=== PATIENT | male | born 1990 | race Caucasian/White ===

== ENCOUNTER 2021-08-22 15:16 | Emergency (ER) | payer OTHER, SELFPAY ==
--- NOTE | ~2021-08-22 | CT_ITS ---
EXAMINATION: CT HEAD WITHOUT CONTRAST CLINICAL INFORMATION: Headache COMPARISON: Head CT 07/16/2015 TECHNIQUE: Imaging was performed from the skull base to vertex without intravenous administration of contrast. This CT examination was performed using dose optimization techniques as appropriate, variously including the following: *Automated exposure control *Adjustment of mA and/or kV according to patient size (this includes techniques or standardized protocols for targeted exams where dose is matched to indication/reason for exam; i.e. extremities or head) *Use of iterative reconstruction technique Total exam dose length product: 788 mGy-cm FINDINGS: No intra or extra-axial fluid collection, hemorrhage, or mass. No ventriculomegaly. No midline shift or herniation. Basal cisterns are patent. Wilhelm-white matter differentiation is maintained. No territorial encephalomalacia. No significant volume loss. There is no abnormal attenuation within the brain parenchyma. No calvarial fracture or soft tissue abnormality. The mastoid air cells and visualized portions of the paranasal sinuses are well aerated. CT/CT head/brain wo con IMPRESSION: 1. No acute intracranial pathology.
[2021-08-22 15:23] VITALS: BP 104/74; PULSE 94; RESP 20; TEMP 36.8; O2SAT 96; BMI 26.9
--- NOTE | 2021-08-22 20:31 | ED.NAVMDI ---
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 As per mother patient had a history of psych disorder. Patient stated that his been hearing voices, no depression, no SI, no HI, no substance abuse. Complaining of headache with nausea and vomiting and blurry vision, otherwise no diarrhea, no losing weight. No sick contact, no recent travel. Patient also been complaining of upper abdominal/epigastric pain that localized to the epigastric area with no radiation mostly with vomiting, pain is intermittent. Related Data Previous Rx's Medication Instructions Recorded omeprazole magnesium 20 mg 20 mg PO BID #20 tab 08/22/21 tablet,delayed release (Prilosec OTC) ondansetron 4 mg disintegrating 4 mg PO BEDTIME PRN 4 Days #7 tab 08/22/21 tablet Allergies Allergy/AdvReac Type Severity Reaction Status Date / Time Pork/Porcine Containing AdvReac Unknown CONGREGATIONAL Unverified 12/06/19 18:46 Products REASONS [PORK/PORCINE CONTAINING PRODUCTS] Review of Systems Review of Systems: All other systems are reviewed and are negative Constitutional: Reports as per HPI and Reports no additional constitutional complaints Eyes: Reports as per HPI and Reports no additional eye complaints Reports system reviewed and no additional complaints, except as documented Cardiovascular: Reports as per HPI and Reports no additional cardiovascular complaints Respiratory: Reports as per HPI and Reports no additional respiratory complaints Gastrointestinal: Reports as per HPI and Reports no additional gastrointestinal complaints Genitourinary: Reports no additional female genitourinary complaints Musculoskeletal: Reports no additional musculoskeletal complaints Skin/Breast: Reports system reviewed and no additional complaints, except as docu Psychiatric: Reports no additional psychiatric complaints Endocrine: Reports no additional endocrine complaints Hematologic/Lymphatic: Reports no additional hematologic/lymphatic complaints Allergic/Immunologic: Reports no additional allergic/immunologic complaints Reports system reviewed and no additional complaints, except as documented and Reports Abnormal speech present Physical Exam Vital Signs: Vital Signs: Last Vital Signs Temp 98.2 F 08/22/21 15:23 Pulse 94 08/22/21 15:23 Resp 20 08/22/21 15:23 BP 104/74 08/22/21 15:23 Pulse Ox 96 08/22/21 15:23 BMI result Body Mass Index 26.9 Vital signs have been reviewed as appeared to be correct. Blood pressure normal. Heart rate normal. Respiration rate normal. Temperature normal. Oxygen saturation normal. Appearance: Alert. Oriented X3. No acute distress. Head: Normal external exam. Normocephalic. Atraumatic. No Coyle signs noted. No raccoon eyes noted Eyes: PERRLA. EOMI. Conjunctiva and sclera normal. Eyelids normal. ENT: TM's Normal. Pharynx normal. Uvula midline. Moist mucous membranes. No trismus noted. No drooling noted. No muffled voice noted. Neck: Normal inspection. Neck supple. FROM. No adenopathy. Thyroid Normal. No meningeal signs. No neck mass noted. CVS: Normal heart rate and rhythm. Heart sound normal. No murmurs noted. Pulses normal throughout. Respiratory: No respiratory distress. Painless inspiration. Breath sounds normal. No wheezes/rales/rhonchi noted. Chest nontender. No accessory muscle usage noted or decreased air movement noted. Abdomen: Soft, mild epigastric tenderness, no rebound, no guarding. Bowel sounds normal in all 4 quadrants. No distention noted. No organomegaly noted. No visible injury noted. Back: No CVA tenderness. Full range of motion noted. Skin: Skin warm and dry. Normal skin color. Normal skin turgor. No rashes/lesions/lacerations noted. Extremities: No lower extremity edema. Extremities exhibit normal range of motion. Extremities nontender. Neuro: Oriented X 3. Cranial nerve exam: II-XII are grossly intact No motor deficit. No sensory deficit. Reflexes normal. Patient Orientation: Person, Place, Time and Situation Level of Consciousness: Awake, Appropriate and Alert Patient Behavior: Appropriate, Guarded, Cooperative and Anxious Mood Description: Constricted, Blunted and Apprehensive Affect Description: Constricted, Blunted and Apprehensive Patient Cognition Impaired: No Ability to Follow Directions: Excellent Speech Pattern: Clear, Appropriate and Spontaneous Speech Memory Description: Intact, Immediate Intact and Short Term Intact Hallucinations: None Delusions: Not Present Thought Process: Intact Thought Content: positive for Intact, positive for Logical, denies Suicidal Ideation and denies Homicidal Ideation. Judgement: Good Judgement and Insight: Intact Course Course Course Narrative: Assessment and plan. 31-year-old male came in with headache and nausea and vomiting, exam is more consistent with gastritis, patient has a normal neuro exam, head CT is unremarkable for intracranial pathology. Patient was complaining of voices hallucinations has a normal mental exam at this point patient does not seem disorganized no SI, no HI. Will discharge the patient with antinausea medication and Prilosec for gastritis. MDM - Nausea/Vomiting/Diarrhea Medical Records Attestation: I reviewed the patient's medical records. Lab Data Attestation: I reviewed the patient's lab results. Result diagrams: 08/22/21 21:00 08/22/21 21:00 Labs: Lab Results 08/22/21 08/22/21 08/22/21 Range/Units 21:00 21:00 21:00 WBC 7.4 (4.8-10.8) X10*3/uL RBC 5.96 H (4.60-5.80) X10*6/uL Hgb 15.8 (14.0-18.0) g/dl Hct 47.9 (42.0-52.0) % MCV 80.4 (80.0-98.0) fL MCH 26.5 L (27.0-33.0) pg MCHC 33.0 (31.0-36.0) g/dl RDW 13.8 (11.0-16.0) % Plt Count 186 (160-400) X10*3/uL MPV 10.2 (9.4-12.4) fL Immature Gran % (Auto) 0.3 (0.0-0.4) % Neut % (Auto) 67.6 (45-73) % Lymph % (Auto) 25.5 (20-40) % [place] % (Auto) 5.1 (2-11) % Eos % (Auto) 1.2 (0-4) % Baso % (Auto) 0.3 (0-2) % Lymph # (Auto) 1.9 (1.2-4.9) X10*3/uL [place] # (Auto) 0.4 (0.1-1.2) X10*3/uL Eos # (Auto) 0.1 (0.0-0.4) X10*3/uL Baso # (Auto) 0.0 (0.0-0.2) X10*3/uL Abs Immat Gran (auto) 0.02 (0.00-0.03) X10*3/uL Absolute Neuts (auto) 5.0 (2.0-8.3) x10*3/uL Absolute Nucleated RBC 0.000 (0.0-0.012) X10*3/uL Nucleated RBC % (auto) 0.0 (0.0-0.2) /100WBC Sodium 140 (135-145) mmol/L Potassium 3.6 (3.3-5.1) mmol/L Chloride 103 (96-108) mmol/L Carbon Dioxide 26 (22-29) mmol/L Anion Gap 15 (12-20) BUN 12 (9-16) mg/dL Creatinine 0.83 (0.5-1.4) mg/dL Estim Creat Clear Calc 141.5 Estimated GFR > 60 Random Glucose 73 (60-115) mg/dL Calcium 9.3 (8.4-10.2) mg/dL Total Bilirubin 0.5 (0.0-1.0) mg/dL Direct Bilirubin 0.2 (0.0-0.5) mg/dL AST 16 (5-37) U/L ALT 13 (0-40) U/L Alkaline Phosphatase 65 (39-117) U/L Total Protein 8.1 H (6.5-8.0) g/dL Albumin 5.0 (3.5-5.0) g/dL Lipase 22 (8-78) U/L Urine Color YELLOW Urine Appearance CLEAR Urine pH 6.0 (5.0-8.0) Ur Specific [employer] 1.025 (1.005-1.025) Urine Protein NEG (NEG-TRACE) MG/DL Urine Glucose (UA) NEG (NEG) MG/DL Urine Ketones 40 (NEG) MG/DL Urine Blood NEG (NEG) Urine Nitrite NEG (NEG) Ur Leukocyte Esterase NEG (NEG) Imaging Data CT scan - head: Attestation: I personally reviewed and interpreted this imaging study as follows: Radiologist's impression: No acute pathology Discharge Plan Discharge Clinical Impression: Gastritis, Headache Patient Disposition: Home, Self-Care Instructions: Gastritis (ED) Prescriptions: New ondansetron 4 mg tablet,disintegrating 4 mg PO BEDTIME PRN (Reason: nausea and vomiting) 4 Days Qty: 7 0RF omeprazole magnesium [Prilosec OTC] 20 mg tablet,delayed release (DR/EC) 20 mg PO BID Qty: 20 0RF Referrals: Physician,Unknown J [Primary Care Provider] -
[2021-08-22] MEDS: ondansetron HCL 4 MG/2 ML VIAL IVPUSH (21:02)
[2021-08-22] MEDS: 0.9 % Sodium Chloride 1,000 ML 999 ML IV (21:03)
[2021-08-22 21:07] LABS: MANUAL DIFF FLAG NO
[2021-08-22 21:17] LABS: Basophils Percent Auto 0.3 % (0-2); Eosinophils Absolute Auto 0.1 X10*3/uL (0.0-0.4); Eosinophils Percent Auto 1.2 % (0-4); Hematocrit 47.9 % (42.0-52.0); Hemoglobin 15.8 g/dl (14.0-18.0); Imm Gran Abs Auto 0.02 X10*3/uL (0.00-0.03); Imm Gran Pct Auto 0.3 % (0.0-0.4); Lymphocytes Absolute Auto 1.9 X10*3/uL (1.2-4.9); Lymphocytes Percent Auto 25.5 % (20-40); Mean Corpuscular Hemoglobin 26.5 pg (27.0-33.0); Mean Corpuscular Volume 80.4 fL (80.0-98.0); Mean Platelet Volume 10.2 fL (9.4-12.4); Monocytes Absolute Auto 0.4 X10*3/uL (0.1-1.2); Monocytes Percent Auto 5.1 % (2-11); Neutrophils Percent Auto 67.6 % (45-73); Platelet Count 186 X10*3/uL (160-400); Red Blood Count 5.96 X10*6/uL (4.60-5.80); Red Cell Distribution Width 13.8 % (11.0-16.0); White Blood Count 7.4 X10*3/uL (4.8-10.8)
[2021-08-22 21:20] LABS: Appearance Urine CLEAR; Color Urine YELLOW; Glucose Urine UA NEG (NEG); Leukocyte Esterase Urine NEG (NEG); Nitrite Urine NEG (NEG); Specific Gravity - Urine 1.025 (1.005-1.025); Urine Blood NEG (NEG); Urine Ketones 40 MG/DL (NEG); Urine Protein NEG (NEG-TRACE)
[2021-08-22 21:33] LABS: Alanine Aminotransferase 13 U/L (0-40); Alkaline Phosphatase 65 U/L (39-117); Anion Gap 15 (12-20); Aspartate Amino Transferase 16 U/L (5-37); Bilirubin Direct 0.2 mg/dL (0.0-0.5); Bilirubin Total 0.5 mg/dL (0.0-1.0); Blood Urea Nitrogen 12 mg/dL (9-16); Calcium 9.3 mg/dL (8.4-10.2); Carbon Dioxide 26 mmol/L (22-29); Chloride 103 mmol/L (96-108); Creatinine Clr Calc Pharmacy 141.5; Estimated Glomerular Filt Rate > 60; Glucose Random 73 mg/dL (60-115); Lipase 22 U/L (8-78); Potassium 3.6 mmol/L (3.3-5.1); Sodium 140 mmol/L (135-145); Total Protein 8.1 g/dL (6.5-8.0)
== END 2021-08-22 23:01 | disposition home or self-care (01) ==
LOC: HO.ED 23:01
PROVIDERS: Emergency Provider Emergency Medicine
DX: K29.70 Gastritis, unspecified, without bleeding (principal); R11.2 Nausea with vomiting, unspecified; R51.9 Headache, unspecified; Z79.899 Other long term (current) drug therapy
CPT/HCPCS: 36415; 70450; 80048; 80076; 81003; 83690; 85025; 96365; 96376; 99281; 99283; 99284; J2405

== ENCOUNTER 2021-08-24 20:11 | Emergency (ER) | payer OTHER, SELFPAY ==
[2021-08-24 20:32] VITALS: BP 125/71; PULSE 91; RESP 15; TEMP 36.8; O2SAT 98; BMI 24.4
[2021-08-24 21:15] LABS: MANUAL DIFF FLAG NO
[2021-08-24 21:18] LABS: Basophils Percent Auto 0.2 % (0-2); Eosinophils Percent Auto 0.3 % (0-4); Hematocrit 49.2 % (42.0-52.0); Hemoglobin 16.5 g/dl (14.0-18.0); Imm Gran Abs Auto 0.04 X10*3/uL (0.00-0.03); Imm Gran Pct Auto 0.3 % (0.0-0.4); Lymphocytes Absolute Auto 1.5 X10*3/uL (1.2-4.9); Lymphocytes Percent Auto 13.3 % (20-40); Mean Corpuscular HGB Conc 33.5 g/dl (31.0-36.0); Mean Corpuscular Hemoglobin 26.2 pg (27.0-33.0); Mean Corpuscular Volume 78.2 fL (80.0-98.0); Mean Platelet Volume 10.1 fL (9.4-12.4); Monocytes Absolute Auto 0.5 X10*3/uL (0.1-1.2); Monocytes Percent Auto 4.2 % (2-11); Neutrophils Absolute Auto 9.4 x10*3/uL (2.0-8.3); Neutrophils Percent Auto 81.7 % (45-73); Platelet Count 203 X10*3/uL (160-400); Red Blood Count 6.29 X10*6/uL (4.60-5.80); Red Cell Distribution Width 14.1 % (11.0-16.0); White Blood Count 11.5 X10*3/uL (4.8-10.8)
--- NOTE | 2021-08-24 21:22 | ED_ITS ---
HPI - General Adult General Chief complaint: Nausea/Vomiting/Diarrhea Stated complaint: Vomiting/Fever Time Seen by Provider: 08/24/21 20:48 Source: patient and family Mode of arrival: ambulatory Limitations: language barrier History of Present Illness HPI narrative: Patient is 31 years old with history of schizophrenia was seen here 2 days ago for dizziness and vomiting workup was negative including head CT discharged on Prilosec for gastritis. Patient comes back has still having dizziness and unable to hold down any food because of nausea symptoms started about 5 days ago acute onset with tinnitus on the right ear feels spinning movements on turning the head to the right side. No headache no fever or chills no upper respiratory symptoms no abdominal pain no diarrhea patient feels off balance when he ambulates symptoms subsides when patient stays still Related Data Previous Rx's Medication Instructions Recorded omeprazole magnesium 20 mg 20 mg PO BID #20 tab 08/22/21 tablet,delayed release (Prilosec OTC) ondansetron 4 mg disintegrating 4 mg PO BEDTIME PRN 4 Days #7 tab 08/22/21 tablet meclizine 25 mg tablet 25 mg PO TID PRN #20 tab 08/24/21 ondansetron 4 mg disintegrating 4 mg PO Q6-8H PRN #10 tab 08/24/21 tablet Allergies Allergy/AdvReac Type Severity Reaction Status Date / Time Pork/Porcine Containing AdvReac Unknown TAOISM Verified 08/24/21 20:38 Products REASONS [PORK/PORCINE CONTAINING PRODUCTS] Review of Systems Review of Systems: Yes all other systems are reviewed and are negative [facility] Past Medical History Medical History (Updated 08/25/21 @ 00:02 by Stefani Hurtado) Schizophrenia Social History Social History Advance Directives: No Advance Directives Information Provided: No Physical Exam ED Vital Signs: Vital Signs - 24 hr 08/24/21 20:32 08/24/21 21:27 08/24/21 22:14 Temperature 98.3 F Pulse Rate 91 88 87 Respiratory Rate 15 15 16 Blood Pressure 125/71 128/75 Pulse Oximetry 98 98 98 BMI result Body Mass Index 24.4 Appearance: Alert. Oriented X3. No acute distress. Eyes: PERRLA, Nystagmus+ with fast component to the right side ENT: Pharynx normal. Oral Mucosa moist Neck: Normal inspection. Neck supple. CVS: Normal heart rate and rhythm. Pulses normal. Respiratory: No respiratory distress. Equal air entry bilateral, no wheezing/rales/rhonchi Abdomen: Soft and nontender. Bowel sounds are present, Skin: Skin warm and dry. Normal skin color. Normal skin turgor. Extremities: No lower extremity edema. No calf tenderness Neuro: Oriented X 3. No motor deficit. No sensory deficit.No cerebellar signs , cranial nerves II-XII intact steady gait no truncal ataxia Medical Decision Making MDM Narrative Medical decision making narrative: Patient with benign positional vertigo improved after meclizine and Zofran sublingual able to ambulate and taking p.o. fluids will discharge patient home o n meclizine Lab Data Lab results reviewed: Yes I reviewed the patient's lab results. Result diagrams: 08/24/21 21:10 08/24/21 21:10 Labs: Lab Results 08/24/21 08/24/21 08/24/21 Range/Units 21:10 21:10 21:10 WBC 11.5 H (4.8-10.8) X10*3/uL RBC 6.29 H (4.60-5.80) X10*6/uL Hgb 16.5 (14.0-18.0) g/dl Hct 49.2 (42.0-52.0) % MCV 78.2 L (80.0-98.0) fL MCH 26.2 L (27.0-33.0) pg MCHC 33.5 (31.0-36.0) g/dl RDW 14.1 (11.0-16.0) % Plt Count 203 (160-400) X10*3/uL MPV 10.1 (9.4-12.4) fL Immature Gran % (Auto) 0.3 (0.0-0.4) % Neut % (Auto) 81.7 H (45-73) % Lymph % (Auto) 13.3 L (20-40) % [place] % (Auto) 4.2 (2-11) % Eos % (Auto) 0.3 (0-4) % Baso % (Auto) 0.2 (0-2) % Lymph # (Auto) 1.5 (1.2-4.9) X10*3/uL [place] # (Auto) 0.5 (0.1-1.2) X10*3/uL Eos # (Auto) 0.0 (0.0-0.4) X10*3/uL Baso # (Auto) 0.0 (0.0-0.2) X10*3/uL Abs Immat Gran (auto) 0.04 H (0.00-0.03) X10*3/uL Absolute Neuts (auto) 9.4 H (2.0-8.3) x10*3/uL Absolute Nucleated RBC 0.000 (0.0-0.012) X10*3/uL Nucleated RBC % (auto) 0.0 (0.0-0.2) /100WBC Sodium (135-145) mmol/L Potassium (3.3-5.1) mmol/L Chloride (96-108) mmol/L Carbon Dioxide (22-29) mmol/L Anion Gap (12-20) BUN (9-16) mg/dL Creatinine (0.5-1.4) mg/dL Estim Creat Clear Calc Estimated GFR Random Glucose (60-115) mg/dL Calcium (8.4-10.2) mg/dL COVID-19 (TOMER) Negative (Negative) COVID-19 Clin Com See Note Influenza Type A (NATALI) Negative (Negative) Influenza Type B (NATALI) Negative (Negative) Influenza A & B Note See Note 08/24/21 Range/Units 21:10 WBC (4.8-10.8) X10*3/uL RBC (4.60-5.80) X10*6/uL Hgb (14.0-18.0) g/dl Hct (42.0-52.0) % MCV (80.0-98.0) fL MCH (27.0-33.0) pg MCHC (31.0-36.0) g/dl RDW (11.0-16.0) % Plt Count (160-400) X10*3/uL MPV (9.4-12.4) fL Immature Gran % (Auto) (0.0-0.4) % Neut % (Auto) (45-73) % Lymph % (Auto) (20-40) % [place] % (Auto) (2-11) % Eos % (Auto) (0-4) % Baso % (Auto) (0-2) % Lymph # (Auto) (1.2-4.9) X10*3/uL [place] # (Auto) (0.1-1.2) X10*3/uL Eos # (Auto) (0.0-0.4) X10*3/uL Baso # (Auto) (0.0-0.2) X10*3/uL Abs Immat Gran (auto) (0.00-0.03) X10*3/uL Absolute Neuts (auto) (2.0-8.3) x10*3/uL Absolute Nucleated RBC (0.0-0.012) X10*3/uL Nucleated RBC % (auto) (0.0-0.2) /100WBC Sodium 141 (135-145) mmol/L Potassium 4.5 D (3.3-5.1) mmol/L Chloride 105 (96-108) mmol/L Carbon Dioxide 26 (22-29) mmol/L Anion Gap 15 (12-20) BUN 12 (9-16) mg/dL Creatinine 0.92 (0.5-1.4) mg/dL Estim Creat Clear Calc 127.6 Estimated GFR > 60 Random Glucose 83 (60-115) mg/dL Calcium 9.6 (8.4-10.2) mg/dL COVID-19 (TOMER) (Negative) COVID-19 Clin Com Influenza Type A (NATALI) (Negative) Influenza Type B (NATALI) (Negative) Influenza A & B Note Discharge Plan Discharge Clinical Impression: Benign paroxysmal positional vertigo Patient Disposition: Home, Self-Care Instructions: Benign Paroxysmal Positional Vertigo (ED) Additional Instructions: Take medication as prescribed for nausea and dizziness Care and cautions as advised Prescriptions: New meclizine 25 mg tablet 25 mg PO TID PRN (Reason: dizziness) Qty: 20 0RF ondansetron 4 mg tablet,disintegrating 4 mg PO Q6-8H PRN (Reason: nausea and vomiting) Qty: 10 0RF No Action ondansetron 4 mg tablet,disintegrating 4 mg PO BEDTIME PRN (Reason: nausea and vomiting) 4 Days Qty: 7 0RF omeprazole magnesium [Prilosec OTC] 20 mg tablet,delayed release (/EC) 20 mg PO BID Qty: 20 0RF Interventions: ED Discharge Assessment Last Done: 08/24/21 23:00 Discharge Date/Time: 08/24/21 23:06
[2021-08-24 21:27] VITALS: PULSE 88; RESP 15; O2SAT 98
--- NOTE | 2021-08-24 21:29 | PC.NURSE ---
reports approx 5 days of nasuea and vomiting, dizziness, tinnitus, and generalized left abd pain. decreased PO intake. at bedside. pt in no distress
[2021-08-24 21:34] LABS: Anion Gap 15 (12-20); Blood Urea Nitrogen 12 mg/dL (9-16); Calcium 9.6 mg/dL (8.4-10.2); Carbon Dioxide 26 mmol/L (22-29); Chloride 105 mmol/L (96-108); Creatinine Clr Calc Pharmacy 127.6; Estimated Glomerular Filt Rate > 60; Glucose Random 83 mg/dL (60-115); Potassium 4.5 mmol/L (3.3-5.1); Sodium 141 mmol/L (135-145)
[2021-08-24 21:41] LABS: Influenza A Negative (Negative); Influenza B2 Negative (Negative)
[2021-08-24 21:44] LABS: COVID-19 Test Negative (Negative)
[2021-08-24] MEDS: Ondansetron ODT 4 MG TAB.RAPDIS TRANSLINGU (21:50)
[2021-08-24] MEDS: Meclizine HCl 25 MG TABLET 50 MG PO (21:52)
[2021-08-24 22:14] VITALS: BP 128/75; PULSE 87; RESP 16; O2SAT 98
--- NOTE | 2021-08-24 22:21 | PC.NURSE ---
pt resting comfortably in bed, family member at bedside. family interpreting for pt. pt reports decreased nausea since zofran admin, able to have sips of water without N/V
== END 2021-08-24 23:06 | disposition home or self-care (01) ==
PROVIDERS: Emergency Provider Internal Medicine
DX: H81.11 Benign paroxysmal vertigo, right ear (principal); R11.0 Nausea; Z20.822 Contact with and (suspected) exposure to COVID-19
CPT/HCPCS: 36415; 80048; 85025; 87502; 87635; 99283; 99284

== ENCOUNTER 2024-12-19 11:20 | Emergency (ER) | payer MEDICAID, SELFPAY ==
[2024-12-19 11:32] VITALS: BP 120/79; PULSE 94; O2SAT 96; BMI 27.9
[2024-12-19 11:53] VITALS: BP 106/61; PULSE 90; RESP 18; TEMP 36.1; O2SAT 98
[2024-12-19 12:07] LABS: MANUAL DIFF FLAG NO
[2024-12-19 12:11] LABS: Hematocrit 43.4 % (42.0-52.0); Hemoglobin 14.9 g/dl (14.0-18.0); Imm Gran Abs Auto 0.03 X10*3/uL (0.00-0.03); Imm Gran Pct Auto 0.4 % (0.0-0.4); Lymphocytes Absolute Auto 1.5 X10*3/uL (1.2-4.9); Mean Corpuscular HGB Conc 34.3 g/dl (31.0-36.0); Mean Corpuscular Hemoglobin 26.5 pg (27.0-33.0); Mean Corpuscular Volume 77.1 fL (80.0-98.0); NRBC Abs Auto 0.000 X10*3/uL (0.0-0.012); NRBC Pct Auto 0.0 /100WBC (0.0-0.2); Platelet Count 187 X10*3/uL (160-400); Red Blood Count 5.63 X10*6/uL (4.60-5.80); White Blood Count 7.3 X10*3/uL (4.8-10.8)
[2024-12-19 12:27] LABS: Alanine Aminotransferase 19 U/L (0-40); Albumin Level 4.7 g/dL (3.5-5.0); Alkaline Phosphatase 60 U/L (39-117); Anion Gap 10 (12-20); Aspartate Amino Transferase 22 U/L (5-37); Blood Urea Nitrogen 10 mg/dL (9-16); Calcium 9.1 mg/dL (8.4-10.2); Carbon Dioxide 29 mmol/L (22-29); Chloride 106 mmol/L (96-108); Creatinine Clr Calc Pharmacy 157.8; Estimated Glomerular Filt Rate > 60; Potassium 4.3 mmol/L (3.3-5.1); Sodium 141 mmol/L (135-145); Total Protein 7.2 g/dL (6.5-8.0)
--- NOTE | 2024-12-19 12:56 | ED_ITS ---
HPI - General Adult General Chief complaint: Psychiatric Symptoms Stated complaint: HEARING VOICES,H/O BEHAVIORAL ISSUES PER EMS Time Seen by Provider: 12/19/24 11:34 History of Present Illness ED Provider: German HPI narrative: The patient is a 34-year-old male. I believe he has a history of chronic mental illness, possibly schizophrenia. He was brought to the hospital today after he was found behaving bizarrely in public. Apparently someone felt that he was acting bizarrely while walking and seemed to be responding to internal stimuli. 911 was called. Police recommended coming to the hospital and he agreed. The patient says that he is hearing voices which are telling him that he is stupid and generally making him feel very bad. He has a history of this in the past. He says that he has been on medications in the past but, from what he describes, it is possible he has had dystonic reactions. No fever, sweats, chills. No significant headache, chest pain, abdominal pain, nausea, vomiting. Related Data Home Medications ?Medication ?Instructions ?Recorded ?Confirmed benztropine 1 mg tablet 1 mg PO BID 12/19/24 5 duloxetine 60 mg capsule,delayed 60 mg PO QAM 12/19/24 12/19/24 release haloperidol 10 mg tablet 10 mg PO BID 12/19/24 hydroxyzine pamoate 50 mg capsule 50 mg PO Q12H PRN An xiety 12/19/24 12/19/24 multivitamin with folic acid 400 1 tab PO DAILY 12/19/24 mcg tablet (Daily-Zoltan (with folic acid)) omeprazole 40 mg capsule,delayed 40 mg PO QAM 12/19/24 12/19/24 release zolpidem 10 mg tablet 10 mg PO BEDTIME PRN Insomni a 12/19/24 12/19/24 Allergies Allergy/AdvReac Type Severity Reaction Status Date / Time Pork/Porcine Containing AdvReac Unknown [facility] Verified 12/19/24 11:36 Products (PORK/PORCINE REASONS CONTAINING PRODUCTS) Review of Systems 2 Review of Systems: Yes all other systems are reviewed and are negative [facility] Past Medical History Medical History (Updated 12/19/24 @ 21:11 by Satnam Porter MD) Schizophrenia Social History Social History Advance Directives: No Advance Directives Information Provided: Yes Do you have a plan to hurt others: No Plan Physical Exam ED Vital Signs: Vital Signs - 24 hr 12/19/24 11:53 12/19/24 14:00 12/20/24 02:33 Temperature 97.0 F Pulse Rate 90 Respiratory Rate 18 16 16 Blood Pressure 106/61 Pulse Oximetry 98 Oxygen Delivery Method Room Air 12/20/24 03:11 12/20/24 06:00 Temperature 97.8 F 98.2 F Pulse Rate 96 77 Respiratory Rate 17 15 Blood Pressure 101/65 110/60 Pulse Oximetry 97 100 Oxygen Delivery Method Room Air Room Air BMI result Body Mass Index 27.9 Const Other: The patient is a very pleasant 34-year-old. He was awake and alert, pleasant and cooperative. Orientation/consciousness: patient oriented x3 HENMT Other: The face is symmetrical. ?Mucous membranes moist. Eyes Other: Pupils are round equal, conjunctivae are clear, extraocular movements intact Neck Neck: Yes normal visual inspection and Yes full ROM Resp Effort & Inspection: normal respiratory effort Auscultation: clear to auscultation bilaterally Cardio Rate: regular rate Rhythm: regular rhythm Heart sounds: S1 normal heart sound present and S2 normal heart sound present GI Other: Abdomen is soft and nontender Skin Other: The skin is dry and unremarkable Neuro General: patient oriented x3, gait normal, moves all extremities, no focal motor deficits and CN's II-XI intact bilaterally Extrem Other: There is no calf swelling or tenderness. No asymmetry. No peripheral edema. Course Reevaluation(s) Reevaluation #1: 9:02 AM 12/20/2024 (Dr. Foster Fisher): Time: 09:03 Date: 12/20/24 Provider: Foster Fisher DO Physician observation ended Patient has been cleared for discharge by the CARE team. Will follow up as an outpatient. Medications Administered Generic Name Dose Route Start Last Admin Trade Name Freq PRN Reason Stop Dose Admin Benztropine Mesylate 1 mg 12/20/24 02:30 12/20/24 08:58 Benztropine Mesylate 1 Mg Tablet PO 1 mg BID NATHALY Administration Duloxetine HCl 60 mg 12/20/24 09:00 12/20/24 08:58 Duloxetine Hcl 60 Mg Capsule. PO 60 mg DAILY NATHALY Administration Haloperidol 10 mg 12/20/24 02:30 12/20/24 08:58 Haloperidol 5 Mg Tablet PO 10 mg BID NATHALY Administration Multivitamins/Vitamin C 1 tab 12/20/24 09:00 12/20/24 08:58 Multivitamin Tablet PO 1 tab DAILY NATHALY Administration Omeprazole 40 mg 12/20/24 06:30 12/20/24 09:00 Omeprazole 40 Mg Capsule. PO Not Given DAILY@0630 [facility] Zolpidem Tartrate 10 mg 12/20/24 02:16 12/20/24 02:31 Zolpidem Tartrate 5 Mg Tablet PO 10 mg BEDTIME PRN Administration Insomnia Discontinued Medications Generic Name Dose Route Start Last Admin Trade Name Freq PRN Reason Stop Dose Admin Lorazepam 1 mg 12/19/24 13:56 12/19/24 14:01 Lorazepam 1 Mg Tablet PO 12/19/24 13:57 1 mg ONCE ONE Administration Medical Decision Making Medical Decision Making [facility] Narrative: The patient is a 34-year-old male who was brought to the hospital after acting bizarrely on the streets. I believe he has chronic mental illness. He is very pleasant. He is medically clear. He will be evaluated by the care team. The patient was seen by the care team. They have concerns about possible suicidal statements the patient made with them. They have recommended hospitalization for further management. I think this seems appropriate. The patient is amenable. Nevertheless I signed a section 12 to keep the patient for hospitalization. The patient will be placed in physician observation as of 1600 on 12/19/2024.. Lab Data 12/19/24 12:02 12/19/24 12:02 Labs: Lab Results 12/19/24 12/19/24 Range/Units 12:02 14:53 WBC 7.3 (4.8-10.8) X10*3/uL RBC 5.63 (4.60-5.80) X10*6/uL Hgb 14.9 (14.0-18.0) g/dl Hct 43.4 (42.0-52.0) % MCV 77.1 L (80.0-98.0) fL MCH 26.5 L (27.0-33.0) pg MCHC 34.3 (31.0-36.0) g/dl RDW 14.1 (11.0-16.0) % Plt Count 187 (160-400) X10*3/uL MPV 9.3 L (9.4-12.4) fL Immature Gran % (Auto) 0.4 (0.0-0.4) % Neut % (Auto) 73.3 H (45-73) % Lymph % (Auto) 20.6 (20-40) % Real % (Auto) 4.6 (2-11) % Eos % (Auto) 0.8 (0-4) % Baso % (Auto) 0.3 (0-2) % Lymph # (Auto) 1.5 (1.2-4.9) X10*3/uL Real # (Auto) 0.3 (0.1-1.2) X10*3/uL Eos # (Auto) 0.1 (0.0-0.4) X10*3/uL Baso # (Auto) 0.0 (0.0-0.2) X10*3/uL Abs Immat Gran (auto) 0.03 (0.00-0.03) X10*3/uL Absolute Neuts (auto) 5.4 (2.0-8.3) x10*3/uL Absolute Nucleated RBC 0.000 (0.0-0.012) X10*3/uL Nucleated RBC % (auto) 0.0 (0.0-0.2) /100WBC Sodium 141 (135-145) mmol/L Potassium 4.3 (3.3-5.1) mmol/L Chloride 106 (96-108) mmol/L Carbon Dioxide 29 (22-29) mmol/L Anion Gap 10 L (12-20) BUN 10 (9-16) mg/dL Creatinine 0.76 (0.5-1.4) mg/dL Estim Creat Clear Calc 157.8 Estimated GFR > 60 Random Glucose 101 (60-115) mg/dL Calcium 9.1 (8.4-10.2) mg/dL Total Bilirubin 0.5 (0.0-1.0) mg/dL AST 22 (5-37) U/L ALT 19 (0-40) U/L Alkaline Phosphatase 60 (39-117) U/L Total Protein 7.2 (6.5-8.0) g/dL Albumin 4.7 (3.5-5.0) g/dL Urine Color Yellow Urine Appearance Clear Urine pH 5.5 (5.0-9.0) Ur Specific [place] 1.015 (1.005-1.025) Urine Protein Negative (Neg-Trace) mg/dL Urine Glucose (UA) Negative (Negative) mg/dL Urine Ketones Negative (Negative) mg/dL Urine Blood Negative (Negative) Urine Nitrite Negative (Negative) Ur Leukocyte Esterase Negative (Negative) Urine RBC 0-2 (0-2) /HPF Urine WBC 0-5 (0-5) /HPF Ur Squamous Epith Cells 0-2 (0-2) /HPF Urine Bacteria None Seen (None Seen) Hyaline Casts 0-2 (0-2) /LPF Urine Opiates Screen Not Detected (Not Detect) Ur Buprenorphine Scrn Not Detected (Not Detect) ng/mL Ur Oxycodone Screen Not Detected (Not Detect) ng/mL Urine Methadone Screen Not Detected (Not Detect) ng/mL Urine Fentanyl Screen Not Detected (Not Detect) Ur Barbiturates Screen Not Detected (Not Detect) Ur Phencyclidine Scrn Not Detected (Not Detect) Ur Amphetamines Screen Not Detected (Not Detect) U Benzodiazepines Scrn Not Detected (Not Detect) Urine Cocaine Screen Not Detected (Not Detect) U Marijuana (THC) Screen Not Detected (Not Detect) Ethyl Alcohol < 10 mg/dL Discharge Plan Discharge Clinical Impression: Psychosis Patient Disposition: Home, Self-Care Additional Instructions: You were seen in our Emergency Department today for treatment of a behavioral health issue. It is important after your visit that you follow up with either your behavioral health provider or a primary care doctor within 7 days.? If you have trouble finding a therapist you can reach out to [address] [phone] The National Suicide and Crisis Lifeline can be reached 7 days a week 24 hours a day.? Call 988 to speak with someone.? Return for any worsening symptoms or concerns such as thoughts of self harm or harm to others. Please call 911 if you feel your mental health is worsening.? Prescriptions: No Action hydroxyzine pamoate 50 mg capsule 50 mg PO Q12H PRN (Reason: Anxiety) omeprazole 40 mg capsule,delayed release(DR/EC) 40 mg PO QAM haloperidol 10 mg tablet 10 mg PO BID benztropine 1 mg tablet 1 mg PO BID zolpidem 10 mg tablet 10 mg PO BEDTIME PRN (Reason: Insomnia) duloxetine 60 mg capsule,delayed release(/EC) 60 mg PO QAM multivitamin with folic acid [Daily-Zoltan (with folic acid)] 400 mcg tablet 1 tab PO DAILY Interventions: [place]-Suicide Risk Severity Scale Last Done: 12/19/24 11:41 Print Language: Irish
[2024-12-19 14:00] VITALS: RESP 16
--- OUTSIDE RECORDS SUMMARY | 2024-12-19 14:58 | XMS_ITS | Clinical Summary ---
Author Organization [facility] Address [address] [place] [address] Care Team Providers Care Refining Supervisor Name Role Phone Unavailable Primary Care Provider Unavailabl e Encounters Date Type Department Care Team Description 10/09/2024 Population Health Risk Score [facility] (C[facility]) Department [address] [id number] Provider, Population Health Generic from Last 3 Months Social History Tobacco Use Types Packs/Day Years Used Date Smoking Tobacco: Never Assessed Sex and Gender Information Value Date Recorded Sex Assigned at Not on file Legal Sex Male 9:30 PM EDT Gender Identity Not on file Sexual Orientation Not on file Plan of Treatment Health Maintenance Due Date Last Done Comments Depression Screening 1990 SDOH Screening 1990 Disability Screening 1990 Alcohol/Substance Use Screening 2002 Tobacco Screening 2002 Family Planning (PISQ) 2005 HPV Vaccines (1 - Male 3-dose series) 2005 Hepatitis C Screening 2008 Hepatitis B Vaccines (1 of 3 - 19+ 3-dose series) 2009 COVID-19 Vaccine (4 - season) 2024 01/14/2023, 01/05/2022, 12/12/2020 Influenza Vaccine (#1) 2024 , 01/14/2023, 01/05/2022, Additional history exists DTaP/Tdap/Td Vaccines (2 - Td or Tdap) 07/29/2026 07/29/2016 Zoster Vaccines (1 of 2) 2040 RSV Patients and Patients Aged 60 years or older (1 - 1-dose 75+ series) 2065 HIV Screening Completed 09/12/2018 Pneumococcal Vaccine: Pediatrics (0 to 5 Years) and At-Risk Patients (6 to 49) Years Aged Out 04/29/2023, 10/04/2019 No longer eligibl e based on patient's age to complete this topic HIB Vaccines Aged Out No longer eligi ble based on patient's age to complete this topic Hepatitis A Vaccines Aged Out No long er eligible based on patient's age to complete this topic IPV Vaccines Aged Out No longer eligi ble based on patient's age to complete this topic Meningococcal B Vaccine Aged Out No l onger eligible based on patient's age to complete this topic Meningococcal Vaccine Aged Out No enllie annmarie eligible based on patient's age to complete this topic RSV under 20 months Aged Out No longe r eligible based on patient's age to complete this topic Rotavirus Vaccines Aged Out No longer eligible based on patient's age to complete this topic
--- OUTSIDE RECORDS SUMMARY | 2024-12-19 14:58 | XMS_ITS | Clinical Summary ---
Author Organization [facility] Address [address] [place] [address] Care Team Providers Care Tank Terminal Gauger Name Role Phone Unavailable Primary Care Provider Unavailabl e Social History Tobacco Use Types Packs/Day Years Used Date Smoking Tobacco: Never Assessed Sex and Gender Information Value Date Recorded Sex Assigned at Not on file Legal Sex Male 10:21 AM EST Gender Identity Not on file Sexual Orientation Not on file Plan of Treatment Health Maintenance Due Date Last Done Comments Hepatitis B Vaccines (1 of 3 - 19+ 3-dose series) 2009 HPV Vaccines (1 - 3-dose SCD M series) 2017 Depression Screening 03/21/2024 COVID-19 Vaccine (1 - 2023-2 5 season) 2024 Influenza Vaccine (#1) 2024 DTaP,Tdap,and Td Vaccines (2 - Td or Tdap) 07/29/2026 07/29/2016 RSV Immunization Adult Patie nts (1 - 1-dose 75+ series) 2065 HIB Vaccines Aged Out No longer eligi ble based on patient's age to complete this topic Hepatitis A Vaccines Aged Out No long er eligible based on patient's age to complete this topic IPV Vaccines Aged Out No longer eligi ble based on patient's age to complete this topic MMR Vaccines Aged Out No longer eligi ble based on patient's age to complete this topic Meningococcal ACWY Vaccine Aged Out N o longer eligible based on patient's age to complete this topic Meningococcal B Vaccine Aged Out No l onger eligible based on patient's age to complete this topic Pneumococcal Vaccine: Pediat rics (0 to 5 Years) and At-Risk Patients (6 to 49 Years) Aged Out No longer eligi ble based on patient's age to complete this topic RSV Immunization Patients Un hung 20 months Aged Out No longer eligible b ased on patient's age to complete this topic Varicella Vaccines Aged Out No longer eligible based on patient's age to complete this topic
--- OUTSIDE RECORDS SUMMARY | 2024-12-19 14:58 | XMS_ITS | Clinical Summary ---
Author Organization [facility] Address [address] [place] [address] Care Team Providers Care Oil Rig Driller Name Role Phone Hussein Vigil MD Primary Care Provider [phone] Source Comments PLEASE NOTE, if this patient is a minor, it may be UNLAWFUL to discuss sensitive information that is contained in these records (such as FAMILY PLANNING, MENTAL HEALTH or SUBSTANCE ABUSE) with the minor patient's parent or other person without the patient's specific authorization.[facility] Allergies No known active allergies Medications DULoxetine (CYMBALTA) [address] capsuleIndication s:Undifferentiate d schizophrenia Take 60 mg by mouth once daily 0 09/02/19 19 Active haloperidol (HALDOL) 10 mg tablet Take 1 tablet (10 mg) by mouth 2 times per day 1 09/26/19 19 Active benztropine (COGENTIN) 1 mg tablet Take 1 tablet (1 mg) by mouth 2 times per day 1 09/26/19 19 Active hydrOXYzine pamoate (VISTARIL) 50 mg capsule Take 1 capsule (50 mg) by mouth every 12 hours as needed 10/27/19 22 Active zolpidem (AMBIEN) 10 mg tablet Take 10 mg by mouth nightly at bedtime as needed for sleep 01/23/20 24 Active docusate sodium (COLACE) 100 mg capsule Take 1 Capsule by mouth 2 (two) times daily 180 Capsule 2 01/27/20 24 Active DAILY-SILVIANO, WITH FOLIC ACID, 400 mcg tab TAKE 1 TABLET BY MOUTH EVERY DAY 90 Tablet 3 03/05/20 24 Active ketoconazole (NIZORAL) 2 % shampooIndication s:Seborrheic dermatitis, unspecified APPLY TOPICALLY ONCE DAILY NEEDED FOR ITCHING 120 mL 10/17/19 25 Active omeprazole (PRILOSEC) [address] capsule TAKE 1 CAPSULE BY MOUTH EVERY DAY IN THE MORNING BEFORE BREAKFAST 90 Capsule 12/12/19 25 Active omeprazole (PRILOSEC) [address] capsule TAKE 1 CAPSULE BY MOUTH EVERY DAY IN THE MORNING BEFORE BREAKFAST 90 Capsule 3 01/27/20 24 025 Discontinued Active Problems Problem Noted Date Diagnosed Date Overweight 01/27/2024 Seborrheic dermatitis 01/14/2023 Tobacco abuse 01/05/2022 Chronic constipation 01/05/2022 Gastroesophageal reflux disease 12/14/2016 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 (01/05/2022): Follows regularly with psychiatrist Chronic urticaria 09/01/2015 Resolved Problems Problem Noted Date Diagnosed Date Resolved Date Essential hypertension 09/01/201511/18 Immunizations Immunization Administration Dates Next Due Flu, Preservative Free 01/14/2023,2021,12/12/2020,12/08,08/03/2017 INFLUENZA, SEASONAL, INJECTABLE 01/08/2013 Influenza (FLUBLOK),recombinant,injectable,prese rvative Free 01/27/2024 MODERNA COVID-19 VACCINE BIV ALENT, BLUE CAP, 6M+ 01/05/2022 PFIZER COVID VACCINE, PURPLE CAP, 12+ 12/12/2020 PNEUMOCOCCAL CONJUGATE PCV 2 0 (Prevnar 20) 04/29/2023 PNEUMOCOCCAL POLYSACCHARIDE PPV23 (Pneumovax 23) 10/04/2019 PPD 07/29/2016 Pfizer COVID-19 (Comirnaty), Mrna, Lnp-s, Pf, Anshul-sucrose, 30 Mcg/0.3 Ml, 12yr+ 01/14/2023 TDAP 07/29/2016 Family History Medical History Relation Name Comments No Known Problems Father Allergies Mother Relation Name Status Comments Brother Alive Father Alive Mother Alive Sister Alive Social History Tobacco Use Types Packs/Day Years Used Date Smoking Tobacco: Some Days Cigarettes 0.3 1 Passive Smoke Exposure: Never Smokeless Tobacco: Former Quit: 07/02/2014 Tobacco Cessation:Ready to Q uit: Not Asked; Counseling Given: Not Answered Alcohol Use Standard Drinks/Week Comments No 0 (1 standard drink = 0.6 oz pur e alcohol) Social Connections Answer Date Recorded How often do you feel lonely or isolated from th ose around you? 1 01/27/2024 Financial Resource Strain Answer Date R ecorded Hard to pay for: Food 1 01/27/2024 Stress Answer Date Recorded Do you feel these kinds of stress these days? 1 01/27/2024 Physical Activity Answer Date Recorded Physical Activity 0 11/08/2018 Food Insecurity Answer Date Recorded Hard to pay for: Food 1 01/27/2024 Transportation Needs Answer Date Record ed Hard to pay for: Transportation 1 01/27/2024 Housing Stability Answer Date Recorded Hard to pay for: Rent/Mortgage payment 1 01/27/2024 Safety and Environment Answer Date Joseph rded Safety 1 04/29/2023 Utilities Answer Date Recorded Hard to pay for: Utilities 1 01/26 Employment Answer Date Recorded Stress 0 01/05/2022 Sex and Gender Information Value Date Recorded Sex Assigned at Male 07/31/2016 11:34 AM PDT Legal Sex Male 11:36 AM PDT Gender Identity Male 07/31/2016 11:34 AM PDT Sexual Orientation Don't know 06/17/2017 2: 15 PM PDT Last Filed Vital Signs Vital Sign Reading Time Taken Comments Blood Pressure 123/75 06/19/2024 4:23 PM EDT Pulse 66 06/19/2024 4:23 PM EDT Temperature 36.6 C (97.9 F) 01/27/2024 1:49 PM EST Respiratory Rate 19 01/27/2024 1:49 PM EST Oxygen Saturation 96% 01/05/2022 9:06 AM EDT Inhaled Oxygen Concentration - - Weight 100.4 kg (221 lb 6.4 oz) 01/27/2024 1:49 PM EST Height 183 cm (6' 0.05 ) 01/27/2024 1:49 PM EST Body Mass Index 29.99 01/27/2024 1:49 PM EST Plan of Treatment Upcoming Encounters Date Type Department Care Team (Late st Contact Info) Description 01/02/2025 3:40 PM EDT Office Visit [facility] [address] [place] [phone] Erica Oakes [address] [place] [address] 01/28/2025 3:40 PM EST Office Visit [facility] [address] [place] [phone] Francia Le, CONTRACT MODELER [address] [place] [address] Health Maintenance Due Date Last Done Comments Imm-HPV (1 - 3-dose SCDM series) 2017 Alcohol and Drug Screen 03/21/2024 01/27/20 24, 04/29/2023, 01/14/2023, Additional history exists Depression Annual Screen 03/21/2024 024, 11/30/2021 (Managed by Outside Provider), 08/03/2017, Additional history exists [id number] ( season) 2024 01/14/2023, 01/05/2022, 03/10/2021, Additional history exists Imm-Influenza (#1) 2024 01/27/2024, 1 , 01/05/2022, Additional history exists Annual Wellness (Adult): Indicated (All Coverage) 01/26/2025 01/27/2024, 01/14/2023, 01/05/2022, Additional history exists Anxiety Screening 01/26/2025 01/27/2024 Diabetes Screening 01/26/2025 01/27/2024, 1 03/28/2023, 01/14/2023, Additional history exists Lipid Screening 01/26/2025 01/27/2024, 12/20, 01/05/2022, Additional history exists Tobacco Cessation Counseling (#1) 01/26/2025 01/27/2024, 04/29/2023, 01/05/2022, Additional history exists Hypertension Screening (#1) 06/19/2025 Dental BW 06/21/2025 06/19/2024, 10/07/2023 Dental Examination 06/21/2025 06/19/2024, 10/07/2023 Dental Perio Charting 06/21/2025 06/19/2024 Dental Prophy 06/21/2025 06/19/2024, 10/07/2023 Imm-DTaP/Tdap/Td (2 - Td or Tdap) 07/29/2026 017 Dental FMX/Pano 10/08/2028 10/07/2023 HIV Screening Completed 09/12/2018 Hepatitis C Screening Completed 01/05/2022 Imm-Pneumococcal Completed 04/29/2023, 10/04/2019 Imm-Hepatitis B Discontinued Procedures Procedure Name Priority Date/Time Associated Diagnosis Comments COMP PERIODONTAL EVALUATION - NEW/EST PATIENT Routine 06/19/2024 4:20 PM EDT Caries of enamel (incipient) BITEWINGS - FOUR RADIOGRAPHIC IMAGES Routine 06/19/2024 4:20 PM EDT Caries of enamel (incipient) PROPHYLAXIS - ADULT Routine 06/19/2024 4 :20 PM EDT Caries of enamel (incipient) PERIODIC ORAL EVALUATION ESTABLISHED PATIENT Routine 06/19/2024 4:20 PM EDT Caries of enamel (incipient) COMPREHENSIVE METABOLIC PANEL Routine 01/27/2024 2:35 PM EST Routine general medical examination at a health care facility LIPIDS W RFLX TO DIRECT LDL Routine 01/27/2024 2:35 PM EST Routine general medical examination at a health care facility Full INTRAORAL - COMP SERIES OF RADIOGRAPHIC IMAGES Routine 10/07/2023 3:40 PM EDT Defective dental alevism Caries Fracture of crown, enamel, and dentin of tooth without pulp exposure Complete bony impaction of tooth HEPATITIS C AB W/RFLX HCV RNA, QT, RT PCR Routine 01/05/2022 10:13 AM EDT Routine general medical examination at a health care facility ANTIBODY HIV-1&HIV-2 SINGLE RESULT Routine 09/12/2018 3:10 PM EDT Encounter for general adult medical examination w/o abnormal findings from Last 3 Months or Most Recently Relevant to Health Maintenance Results * (ABNORMAL) LIPIDS W RFLX TO DIRECT LDL (01/27/2024 2:35 PM EST) CHOLESTEROL, TOTAL 192 <200 mg/dL [facility] HDL CHOLESTEROL 38(L) > OR = 40 mg/dL [facility] TRIGLYCERIDES 98 <150 mg/dL [facility] LDL-CHOLESTEROL 134(H) 99 mg/dL (calc) [facility] Comment: Reference range: <100 Desirable range <100 mg/dL for primary prevention; <70 mg/dL for patients with CHD or diabetic patients with > or = 2 CHD risk factors. LDL-C is now calculated using the Sharon calculation, which is a validated novel method providing better accuracy than the Friedewald equation in the estimation of LDL-C. Alvino PERALTA et al. AMARILIS. 2013;310(19): 7246-1085 (http://education.Pristones/faq/PEB508) CHOL/HDLC RATIO 5.1(H) <5.0 (calc) [facility] NON-HDL CHOLESTEROL 154(H) <130 mg/dL (calc) [facility] Comment: For patients with diabetes plus 1 major ASCVD risk factor, treating to a non-HDL-C goal of <100 mg/dL (LDL-C of <70 mg/dL) is considered a therapeutic option. Blood Blood / Unknown 01/27/2024 2 :35 PM EST 01/27/2024 2:36 PM EST Narrative [email or web address] - 01/28/2024 7:27 AM EST FASTING:YES us Hussein Vigil MD LAB - BLOOD DRAW Final Resul t [email or web address] [address] [address], [facility] [address] [address] * COMPREHENSIVE METABOLIC PANEL (01/27/2024 2:35 PM EST) GLUCOSE 69 65 - 99 mg/dL [facility] Comment: Fasting reference interval UREA NITROGEN (BUN) 13 7 - 25 mg/dL [facility] CREATININE (blood) 0.76 0.60 - 1.26 mg/dL [facility] EGFR 122 > OR = 60 mL/min/1. 73m2 [facility] BUN/CREATININE RATIO SEE NOTE: [facility] Comment: Not Reported: BUN and Creatinine are within reference range. SODIUM 138 135 - 146 mmol/L [facility] POTASSIUM 4.3 3.5 - 5.3 mmol/L [facility] CHLORIDE 102 98 - 110 mmol/L [facility] CARBON DIOXIDE 26 20 - 32 mmol/L [facility] CALCIUM 9.1 8.6 - 10.3 mg/dL [facility] PROTEIN, TOTAL 6.9 6.1 - 8.1 g/dL [facility] ALBUMIN 4.5 3.6 - 5.1 g/dL [facility] GLOBULIN 2.4 1.9 - 3.7 g/dL (calc) [facility] ALBUMIN/GLOBULI N RATIO 1.9 1.0 - 2.5 (calc) [facility] BILIRUBIN, TOTAL 0.6 0.2 - 1.2 mg/dL [facility] ALKALINE PHOSPHATASE 57 36 - 130 U/L [facility] AST 17 10 - 40 U/L [facility] ALT 14 9 - 46 U/L [facility] Blood Blood / Unknown 01/27/2024 2 :35 PM EST 01/27/2024 2:36 PM EST Narrative [email or web address] - 01/28/2024 7:27 AM EST FASTING:YES us Hussein Vigil MD LAB - BLOOD DRAW Edited Resu lt - Final [email or web address] [address] [address], [facility] [address] [address] * Hep C Antibody with Reflex HCV RNA (01/05/2022 10:13 AM EDT) HEPATITIS C ANTIBODY NON-REACT CHANEL NON-REACT CHANEL [facility] SIGNAL TO CUT-OFF 0.09 <1.00 [facility] Comment: HCV antibody was non-reactive. There is no laboratory evidence of HCV infection. In most cases, no further action is required. However, if recent HCV exposure is suspected, a test for HCV RNA (test code 83788) is suggested. For additional information please refer to http://education.Voxbone/faq/RKC72l4 (This link is being provided for informational/ educational purposes only.) Blood Blood / Unknown 01/05/2022 1 0:13 AM EDT 01/05/2022 10:13 AM EDT Hussein Vigil MD LAB - BLOOD DRAW Edited Resu lt - Final [facility] [address] [address], [facility] [address] [address] * HIV-1 & HIV-2 ANTIBODIES (09/12/2018 3:10 PM EDT) [facility] HIV 1 AND 2 ANTIBODY SCREEN NEGATIVE NEGATIVE [facility] Comment: This assay is a 4th generation assay allowing for earlier detection of HIV infection by detecting the presence of the HIV-1 p24 antigen as well as the traditional antibodies to HIV type 1 (including group O) and type 2. Use of a 4th generation assay is the current CDC recommendation for HIV screening. Blood specimen (specimen) Blood / Unknown 09/12/2018 3:10 PM EDT 09/12/2018 3:54 PM EDT Narrative [facility] - 09/12/2018 8:21 PM EDT [employer], [place] [address] Therapy Coordinator - Monique Davis [place] [id number] ORD# [id number] Olivia [facility]AO LAB - BLOOD DRAW Final Resu lt Performing Organization Address City/[facility]/ZIP Co de Phone Number [address] [address], from Last 3 Months or Most Recently Relevant to Health Maintenance Insurance [id number] [facility] [place] DENTAL Care Teams Oil Rig Driller Relationship Specialty Start Date End Date Hussein Vigil MD [address] [place] [address] PCP - General Internal Medicine 12/31/20
--- OUTSIDE RECORDS SUMMARY | 2024-12-19 14:58 | XMS_ITS | Encounter Summary ---
Author Organization [facility] Address [address] [place] [address] Care Team Providers Care Light Out Examiner Name Role Phone Hussein Vigil MD Primary Care Provider [phone] Encounter Details Date Type Department Care Team (Late Contact Info) Description 08/26/2015 Behavioral Health Visit [address] [phone] Jihan Ambrosio, COUNSELOR [address] [place] [phone] Social History Tobacco Use Types Packs/Day Years Used Date Smoking Tobacco: Former Cigarettes Smokeless Tobacco: Former Quit: 07/02/2014 Alcohol Use Standard Drinks/Week Comments No 0 (1 standard drink = 0.6 oz pur e alcohol) Sex and Gender Information Value Date Recorded Sex Assigned at Male 07/31/2016 11:34 AM PDT Legal Sex Male 11:36 AM PDT Gender Identity Male 07/31/2016 11:34 AM PDT Sexual Orientation Don't know 06/17/2017 2: 15 PM PDT documented as of this encounter Plan of Treatment Upcoming Encounters Date Type Department Care Team (Late st Contact Info) Description 01/02/2025 3:40 PM EDT Office Visit [facility] [address] [place] [phone] Erica Oakes [address] [place] [phone] 01/28/2025 3:40 PM EST Office Visit [address] [phone] Francia Le FNP [address] [place] [address] documented as of this encounter Visit Diagnoses Not on filedocumented in this encounter Care Teams Light Out Examiner Relationship Specialty Start Date End Date Hussein Vigil MD [address] [place] [address] PCP - General Internal Medicine 12/31/20 documented as of this encounter
--- OUTSIDE RECORDS SUMMARY | 2024-12-19 14:58 | XMS_ITS | Encounter Summary ---
Author Organization [facility] Address [address] [place] [address] Care Team Providers Care Litigation Assistant Name Role Phone Hussein Vigil MD Primary Care Provider + [phone] Encounter Details Date Type Department Care Team (Late Contact Info) Description 06/02/2015 Interim Notes [facility] [address] [place] [phone] Estephanie Molina, KRIS [address] [place] [address] Social History Tobacco Use Types Packs/Day Years [...] Description 01/02/2025 3:40 PM EDT Office Visit [facility] [address] [place] [phone] Erica Oakes [address] [place] [address] 01/28/2025 3:40 PM EST Office Visit [address] [phone] Francia Le FNP [address] [place] [address] documented as of this encounter Visit Diagnoses Diagnosis Hypertriglyceridemia- Primary Pure hyperglyceridemia documented in this encounter Care Teams Litigation Assistant Relationship Specialty Start Date End Date Hussein Vigil MD [address] [place] [address] PCP - General Internal Medicine 12/31/20 documented as of this encounter
--- OUTSIDE RECORDS SUMMARY | 2024-12-19 14:58 | XMS_ITS | Encounter Summary ---
Author Organization [facility] Address [address] [place] [address] Care Team Providers Care Supervisor Fabrication Department Name Role Phone Hussein Vigil MD Primary Care Provider [phone] Encounter Details Date Type Department Care Team (Late Contact Info) Description 08/29/2015 Behavioral Health Visit [address] [phone] Jihan Ambrosio, COUNSELOR [address] [place] [phone] Social History Tobacco Use Types Packs/Day Years [...] Description 01/02/2025 3:40 PM EDT Office Visit [facility] [address] [place] [phone] Erica Oakes [address] [place] [address] 01/28/2025 3:40 PM EST Office Visit [address] [phone] Francia Le FNP [address] [place] [address] documented as of this encounter Visit Diagnoses Not on filedocumented in this encounter Care Teams Supervisor Fabrication Department Relationship Specialty Start Date End Date Hussein Vigil MD [address] [place] [address] PCP - General Internal Medicine 12/31/20 documented as of this encounter
[2024-12-19 15:00] LABS: Appearance Urine Clear; Glucose Urine UA Negative (Negative); PH 5.5 (5.0-9.0); Specific Gravity - Urine 1.015 (1.005-1.025)
[2024-12-19 15:09] LABS: Cannabinoid Screen Urine Not Detected (Not Detect)
--- NOTE | 2024-12-20 02:17 | PC.NURSE ---
This RN spoke with pts sister who is requesting frequent updates on pt situation [phone]
[2024-12-20 02:33] VITALS: RESP 16
[2024-12-20 03:11] VITALS: BP 101/65; PULSE 96; RESP 17; TEMP 36.6; O2SAT 97
--- NOTE | 2024-12-20 04:01 | PC.NURSE ---
Pt resting in bed, respirations even and unlabored, no apparent distress is noted
[2024-12-20 06:00] VITALS: BP 110/60; PULSE 77; RESP 15; TEMP 36.8; O2SAT 100
--- NOTE | 2024-12-20 08:12 | PC.NURSE ---
Assumed care, report received. Pt is awake, calm and cooperative. He eats breakfast and goes back to sleep. Pts sister continues to call and ask to talk to the Doctor so she can take her brother home.
[2024-12-20 09:05] VITALS: BP 110/60; PULSE 77; RESP 15; TEMP 36.8
== END 2024-12-20 09:09 | disposition home or self-care (01) ==
PROVIDERS: Emergency Medicine; Emergency Provider Emergency Medicine; PCP Dentist General Practice
DX: F29 Unspecified psychosis not due to a substance or known physiological condition (principal)
CPT/HCPCS: 36415; 80053; 80307; 81001; 85025; 99285; S9485

== ENCOUNTER 2024-12-24 10:49 | Emergency (ER) | payer MEDICAID, SELFPAY ==
--- NOTE | 2024-12-24 11:07 | ED.GENADULT ---
HPI - General Adult General Chief complaint: Psychiatric Symptoms Stated complaint: SI/HI Time Seen by Provider: 12/24/24 11:01 Source: patient Mode of arrival: ambulatory Limitations: no limitations History of Present Illness ED Provider: Dr. Palmer HPI narrative: 34-year-old male presented hospital today for evaluation of hallucination. Patient states he has been having auditory hallucination telling him to kill himself and her other people. Patient was found wandering in the park adding erratically. Therefore 911 was called and the patient was brought to the ER for further evaluation. The patient was recently here 4 days ago for similar symptoms. A safety plan was created with care team and sister. The patient had planned follow up with Dr. Steel. Patient at this time is complaining on a vein on the back of his neck. I did not appreciate any signs of trauma bruising or abnormality on his neck. He has full range of motion. Aside from that he has no other medical complaint. Related Data Home Medications ?Medication ?Instructions ?Recorded ?Confirmed benztropine 1 mg tablet 1 mg PO BID 12/19/24 12/24/24 duloxetine 60 mg capsule,delayed 60 mg PO QAM 12/19/24 12/24/24 release haloperidol 10 mg tablet 10 mg PO BID 12/19/24 12/24/24 hydroxyzine pamoate 50 mg capsule 50 mg PO Q12H PRN Anxiety 12/19/24 12/24/24 multivitamin with folic acid 400 1 tab PO DAILY 12/19/24 12/24/24 mcg tablet (Daily-Zoltan (with folic acid)) omeprazole 40 mg capsule,delayed 40 mg PO QAM 12/19/24 12/24/24 release zolpidem 10 mg tablet 10 mg PO BEDTIME PRN Insomnia 12/19/24 12/24/24 Allergies Allergy/AdvReac Type Severity Reaction Status Date / Time Pork/Porcine Containing AdvReac Unknown MANDAEN Verified 12/24/24 11:15 Products (PORK/PORCINE REASONS CONTAINING PRODUCTS) Review of Systems Review of Systems: Pertinent review of systems as mentioned in HPI. All other system otherwise negative. [facility] Past Medical History [facility] Narrative: Medical history as mentioned in HPI Medical History (Updated 12/24/24 @ 13:36 by Tatum Palmer DO) Schizophrenia Social History Social History Do you have a plan to hurt others: No Plan Physical Exam ED Exam Exam: General: Pleasant, no distress, interacting appropriately Head: Normacephalic, atraumatic ENT: oral mucosa moist, neck supple, no tracheal deviation Cardiovascular: regular rate, regular rhythm, no murmurs, rubbing, gallops Respiratory: CTAB, no wheeze, rales, rhonchi Neurological: Awake and alert, no facial droop noted Skin: Warm and dry Psychiatric: Endorses auditory hallucination with HI and SI. Vital Signs: Vital Signs - 24 hr 12/24/24 11:11 12/24/24 11:36 Temperature 97.2 F 97.2 F Pulse Rate 86 86 Respiratory Rate 18 18 Blood Pressure 117/71 117/71 Pulse Oximetry 98 98 Oxygen Delivery Method Room Air BMI result Body Mass Index 25.8 Medications Administered Discontinued Medications Generic Name Dose Route Start Last Admin Trade Name Freq PRN Reason Stop Dose Admin Nicotine 14 mg 12/24/24 12:33 12/24/24 13:14 Nicotine 14 Mg Patch.Td24 TRANSDERMA 12/24/24 12:34 14 mg ONCE ONE Administration Medical Decision Making Medical Decision Making MDM Narrative: 34-year-old male presented hospital today for evaluation of auditory hallucination telling him to kill himself in her other people. My examination patient does appear to have internal stimuli. The patient stated that he has a vein in the back of his neck on the right side. He has full range of motion in his neck. Does not appear to be having any focal neurologic deficit. Did not appreciate any veins on the back of his neck. We will consult care team at this time for further assistance. Patient's may need further medication titration. He is unable to provide any history and we will kind of medication he is on. CARE team has evaluated patient has clear patient for discharge back home with sister and family. Patient will be discharged at this time. Differential Diagnosis Differential Diagnoses: The differential diagnosis associated with the presentation includes Psychosis, schizophrenia, hallucinations Consult Healthcare Provider Management of the patient was discussed with: Computing Services Director (CARE team) Discharge Plan Discharge Clinical Impression: Psychosis Qualifiers: Psychosis type: other Qualified Code(s): F28 - Other psychotic disorder not due to a substance or known physiological condition Patient Disposition: Home, Self-Care Additional Instructions: Follow up with Dr. Steel. Prescriptions: No Action hydroxyzine pamoate 50 mg capsule 50 mg PO Q12H PRN (Reason: Anxiety) omeprazole 40 mg capsule,delayed release(DR/EC) 40 mg PO QAM haloperidol 10 mg tablet 10 mg PO BID benztropine 1 mg tablet 1 mg PO BID zolpidem 10 mg tablet 10 mg PO BEDTIME PRN (Reason: Insomnia) duloxetine 60 mg capsule,delayed release(DR/EC) 60 mg PO QAM multivitamin with folic acid [Daily-Zoltan (with folic acid)] 400 mcg tablet 1 tab PO DAILY Interventions: [place]-Suicide Risk Severity Scale Last Done: 12/24/24 11:27 Print Language: French
[2024-12-24 11:11] VITALS: BP 117/71; BP 117/74; PULSE 86; PULSE 95; RESP 18; TEMP 36.2; O2SAT 97; O2SAT 98; BMI 25.8
[2024-12-24 11:36] VITALS: BP 117/71; PULSE 86; RESP 18; TEMP 36.2; O2SAT 98
--- NOTE | 2024-12-24 11:36 | PC.NURSE ---
Pt arrives calm and cooperative. he is in good spirits, he has a language barrier and speaks Vietnamese. Pts sister calls and will be in shortly to assist.
[2024-12-24] MEDS: Nicotine 14 MG PATCH.TD24 TRANSDERMA (13:14)
[2024-12-24 14:12] VITALS: BP 117/71; PULSE 86; RESP 18; TEMP 36.2
--- OUTSIDE RECORDS SUMMARY | 2024-12-24 16:38 | XMS_ITS | Encounter Summary ---
Author Organization [facility] Address [address] [place] [address] Care Team Providers Care Social Service Agency Director Name Role Phone Hussein Vigil MD Primary Care Provider [phone] Encounter Details Date Type Department Care Team (Late Contact Info) Description 08/29/2015 Behavioral Health Visit [address] [phone] Jihan Ambrosio, COUNSELOR [address] [place] [phone] Social History Tobacco Use Types Packs/Day Years [...] Description 01/02/2025 3:40 PM EDT Office Visit [facility] [address] [place] [phone] Erica Oakes [address] [place] [address] 01/28/2025 3:40 PM EST Office Visit [address] [phone] Francia Le FNP [address] [place] [address] documented as of this encounter Visit Diagnoses Not on filedocumented in this encounter Care Teams Social Service Agency Director Relationship Specialty Start Date End Date Hussein Vigil MD [address] [place] [address] PCP - General Internal Medicine 12/31/20 documented as of this encounter
--- OUTSIDE RECORDS SUMMARY | 2024-12-24 16:38 | XMS_ITS | Encounter Summary ---
Author Organization [facility] Address [address] [place] [address] Care Team Providers Care Silica Spray Mixer Name Role Phone Hussein Vigil MD Primary Care Provider [phone] Encounter Details Date Type Department Care Team (Late Contact Info) Description 06/02/2015 Interim Notes [facility] [address] [place] [phone] Estephanie Molina, KRIS [address] [place] [address] Social History Tobacco Use Types Packs/Day Years [...] Description 01/02/2025 3:40 PM EDT Office Visit [facility] [address] [place] [phone] Erica Oakes [address] [place] [address] 01/28/2025 3:40 PM EST Office Visit [address] [phone] Francia Le FNP [address] [place] [address] documented as of this encounter Visit Diagnoses Diagnosis Hypertriglyceridemia- Primary Pure hyperglyceridemia documented in this encounter Care Teams Silica Spray Mixer Relationship Specialty Start Date End Date Hussein Vigil MD [address] [place] [address] PCP - General Internal Medicine 12/31/20 documented as of this encounter
--- OUTSIDE RECORDS SUMMARY | 2024-12-24 16:38 | XMS_ITS | Encounter Summary ---
Author Organization [facility] Address [address] [place] [address] Care Team Providers Care Brazer Induction Name Role Phone Hussein Vigil MD Primary Care Provider [phone] Encounter Details Date Type Department Care Team (Late Contact Info) Description 08/26/2015 Behavioral Health Visit [address] [phone] Jihan Ambrosio, COUNSELOR [address] [place] [phone] Social History Tobacco Use Types Packs/Day Years [...] Description 01/02/2025 3:40 PM EDT Office Visit [facility] [address] [place] [phone] Erica Oakes [address] [place] [address] 01/28/2025 3:40 PM EST Office Visit [address] [phone] Francia Le FNP [address] [place] [address] documented as of this encounter Visit Diagnoses Not on filedocumented in this encounter Care Teams Brazer Induction Relationship Specialty Start Date End Date Hussein Vigil MD [address] [place] [address] PCP - General Internal Medicine 12/31/20 documented as of this encounter
--- OUTSIDE RECORDS SUMMARY | 2024-12-24 16:38 | XMS_ITS | Clinical Summary ---
Author Organization [facility] ity Address [address] [place] [address] Care Team Providers Care Fish And Wildlife Scientific Aid Name Role Phone Unavailable Primary Care Provider [...]
--- OUTSIDE RECORDS SUMMARY | 2024-12-24 16:38 | XMS_ITS | Clinical Summary ---
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): Follows regularly with psychiatrist [...] Description 01/02/2025 3:40 PM EDT Office Visit [facility] [address] [place] [phone] Erica Oakes [address] [place] [address] 01/28/2025 3:40 PM EST Office Visit [facility] [address] [place] [phone] Francia Le, SURVEILLANCE MONITOR [address] [place] [address] Health Maintenance Due Date Last Done Comments Imm-HPV (1 - 3-dose SCDM series) 2017 Alcohol and Drug Screen 03/21/2024 01/27/20 24, 04/29/2023, 01/14/2023, Additional history exists Depression Annual Screen 03/21/2024 024, 11/30/2021 (Managed by Outside Provider), 08/03/2017, Additional history exists [id number] ( season) 2024 01/14/2023, 01/05/2022, 03/10/2021, Additional [...] Routine 10/07/2023 3:40 PM EDT Defective dental jew Caries Fracture of crown, enamel, and dentin [...] TOTAL 192 <200 mg/dL [facility] HDL CHOLESTEROL 38(L) > OR = 40 mg/dL [facility] TRIGLYCERIDES 98 <150 mg/dL [facility] LDL-CHOLESTEROL 134(H) 99 mg/dL (calc) Specpage Comment: Reference range: <100 Desirable range <100 mg/dL for primary prevention; <70 mg/dL for patients with CHD or diabetic patients with > or = 2 CHD risk factors. LDL-C is now calculated using the Sharon calculation, which is a validated novel method providing better accuracy than the Friedewald equation in the estimation of LDL-C. Alvino PERALTA et al. AMARILIS. 2013;310(19): 6086-6707 (http://education.Shopnation/faq/BMT149) CHOL/HDLC RATIO 5.1(H) <5.0 (calc) Specpage NON-HDL CHOLESTEROL 154(H) <130 mg/dL (calc) Specpage Comment: For patients with diabetes plus 1 major ASCVD risk factor, treating to a non-HDL-C goal of <100 mg/dL (LDL-C of <70 mg/dL) is considered a therapeutic option. Blood Blood / Unknown 01/27/2024 2 :35 PM EST 01/27/2024 2:36 PM EST Narrative [employer] [facility] - 01/28/2024 7:27 AM EST FASTING:YES us Hussein Vigil MD LAB - BLOOD DRAW Final Resul t [employer] [facility] [address] [address], [employer] [address] [address] * COMPREHENSIVE METABOLIC PANEL (01/27/2024 2:35 PM EST) GLUCOSE 69 65 - 99 mg/dL [facility] Comment: Fasting reference interval UREA NITROGEN (BUN) 13 7 - 25 mg/dL [facility] CREATININE (blood) 0.76 0.60 - 1.26 mg/dL [facility] EGFR 122 > OR = 60 mL/min/1. 73m2 [facility] BUN/CREATININE RATIO SEE NOTE: Specpage Comment: Not Reported: BUN and Creatinine are within reference range. SODIUM 138 135 - 146 mmol/L [facility] POTASSIUM 4.3 3.5 - 5.3 mmol/L [facility] CHLORIDE 102 98 - 110 mmol/L [facility] CARBON DIOXIDE 26 20 - 32 mmol/L [facility] CALCIUM 9.1 8.6 - 10.3 mg/dL [facility] PROTEIN, TOTAL 6.9 6.1 - 8.1 g/dL [facility] ALBUMIN 4.5 3.6 - 5.1 g/dL [facility] GLOBULIN 2.4 1.9 - 3.7 g/dL (calc) [facility] ALBUMIN/GLOBULI N RATIO 1.9 1.0 - 2.5 (calc) Specpage BILIRUBIN, TOTAL 0.6 0.2 - 1.2 mg/dL [facility] ALKALINE PHOSPHATASE 57 36 - 130 U/L [facility] AST 17 10 - 40 U/L [facility] ALT 14 9 - 46 U/L Specpage Blood Blood / Unknown 01/27/2024 2 :35 PM EST 01/27/2024 2:36 PM EST Narrative [employer] [facility] - 01/28/2024 7:27 AM EST FASTING:YES us Hussein Vigil MD LAB - BLOOD DRAW Edited Resu lt - Final [employer] [address] [address], [employer] [address] [address] * Hep C Antibody with Reflex HCV RNA (01/05/2022 10:13 AM EDT) HEPATITIS C ANTIBODY NON-REACT CHANEL NON-REACT CHANEL [facility] SIGNAL TO CUT-OFF 0.09 <1.00 Specpage Comment: HCV antibody was non-reactive. There is no laboratory evidence of HCV infection. In most cases, no further action is required. However, if recent HCV exposure is suspected, a test for HCV RNA (test code 50016) is suggested. For additional information please refer to http://education.Contrib/faq/ZVI64j3 (This link is being provided for informational/ educational purposes only.) Blood Blood / Unknown 01/05/2022 1 0:13 AM EDT 01/05/2022 10:13 AM EDT Hussein Vigil MD LAB - BLOOD DRAW Edited Resu lt - Final [facility] [address] [address], [facility] [address] [address] * HIV-1 & HIV-2 ANTIBODIES (09/12/2018 3:10 PM EDT) [facility] HIV 1 AND 2 ANTIBODY SCREEN NEGATIVE NEGATIVE [employer] (T/A) [facility] Comment: This assay is a 4th generation [...] PM EDT 09/12/2018 3:54 PM EDT Narrative [facility] - 09/12/2018 8:21 PM EDT [employer] [place] [address] Fleet Administrator - Monique Davis MD PT ID [id number] ORD# [id number] Olivia YAO LAB - BLOOD DRAW Final Resu lt Performing Organization Address City/[facility]/ZIP Co de Phone Number [address] [address], from Last 3 Months or Most Recently Relevant to Health Maintenance Insurance [id number] DENTAL Care Teams C Consultant Relationship Specialty Start Date End Date Hussein Vigil MD [address] [place] [address] PCP - General Internal Medicine 12/31/20
--- OUTSIDE RECORDS SUMMARY | 2024-12-24 16:38 | XMS_ITS | Clinical Summary ---
Author Organization [facility] Address [address] [facility] 7 [place] [address] Care Team Providers Care Manager Inventory Name Role Phone Unavailable Primary Care Provider Unavailabl e Encounters Date Type Department Care Team Description 10/09/2024 Population Health Risk Score [facility] (C3) Department [address] [phone] Provider, Population Health Generic from Last 3 [...] this topic Meningococcal Vaccine Aged Out No nellie annmarie eligible based on patient's age to complete this topic RSV under 20 months Aged Out No longe r eligible based on patient's age to complete this topic Rotavirus Vaccines Aged Out No longer eligible based on patient's age to complete this topic
== END 2024-12-24 14:15 | disposition home or self-care (01) ==
PROVIDERS: Emergency Provider Student in an Organized Health Care Education/Training Program; PCP Dentist General Practice
DX: F28 Other psychotic disorder not due to a substance or known physiological condition (principal)
CPT/HCPCS: 99284; S9485